=== PATIENT | female | born 1955 | race Caucasian/White ===

== ENCOUNTER 2019-03-29 08:13 | Emergency (ER) | payer BC ==
--- NOTE | 2019-03-29 09:39 | EDM.PDOC ---
ED HPI GENERAL MEDICAL PROBLEM - General Stated Complaint: SHINGLES Time Seen by Provider: 03/29/19 08:20 Source of Information: Reports: Patient History Limitations: Reports: No Limitations - History of Present Illness INITIAL COMMENTS - FREE TEXT/NARRATIVE: According to patient she claims that she went [place]. She has developed blotchy large rashes along the waist line and along the posterior hairline of the scalp. the rashes were itchy and she has applied some lidocaine cream and the itching has resolved. The rashes have not spread since yesterday. No fever or chills. No wheezing or shortness of breath. No other complaints. Onset Date: 03/28/19 Location: Reports: Generalized Severity: Mild Associated Symptoms: Reports: Rash. Denies: Confusion, Chest Pain, Cough, Diaphoresis, Fever/Chills, Headaches, Seizure, Shortness of Breath, Syncope, Weakness - Related Data Allergies Allergy/AdvReac Type Severity Reaction Status Date / Time No Known Allergies Allergy Verified 03/29/19 11:02 Home Meds: Home Meds . [Unable to Verify Home Med List] 03/29/19 [History] ED ROS GENERAL - Review of Systems Review Of Systems: See Below Constitutional: Denies: Fever, Malaise, Weakness HEENT: Denies: Ear Pain, Rhinitis, Throat Pain Respiratory: Denies: Shortness of Breath, Wheezing, Pleuritic Chest Pain, Cough , Sputum Cardiovascular: Denies: Chest Pain, Lightheadedness GI/Abdominal: Denies: Abdominal Pain, Constipation, Diarrhea, Vomiting : Denies: Flank Pain, Frequency Musculoskeletal: Denies: Joint Pain, Joint Swelling Skin: Reports: Rash. Denies: Bruising, Pruritis, Wound ED EXAM, GENERAL - Physical Exam Exam: See Below Exam Limited By: No Limitations General Appearance: Alert, WD/WN, No Apparent Distress Eye Exam: Bilateral Eye: EOMI, PERRL Ears: Normal External Exam, Normal Canal, Hearing Grossly Normal, Normal TMs Ear Exam: Bilateral Ear: Auricle Normal, Canal Normal, TM normal Nose: Normal Inspection, Normal Mucosa, No Blood Throat/Mouth: Normal Inspection Head: Atraumatic, Normocephalic Neck: Normal Inspection, Supple, Non-Tender, Full Range of Motion Respiratory/Chest: No Respiratory Distress, Lungs Clear, Normal Breath Sounds, No Accessory Muscle Use, Chest Non-Tender Cardiovascular: Normal Peripheral Pulses, Regular Rate, Rhythm, No Edema, No Gallop, No JVD, No Murmur, No Rub Extremities: Normal Inspection, Normal Range of Motion, Non-Tender, Normal Capillary Refill, No Pedal Edema Skin Exam: Warm, Other (there are 1-3 cm ovoid pinksih rash along the waist line of the abdoemn adn also similar confluence of rash along the posterior hair line of the head. The rashes are also scattered over the anterior abdominal wall, none belwo waist line.) Course - Vital Signs Text/Narrative:: The rash might be contact dermatitis from exposure to some phytochemical or insect in the [place]. IT is not spreading. It has been itching and patient has applied lidoderm cream which is helping. No systemic symptoms. I have advised Benadryl 25mg 3 times daily and zantac 150mg twice daily for 3 days. Avoid scratching the rash.The rash should resolve gradually. Return if symptoms worsen. Pt is concerned if this is shingles. I have reassured patient that this is not shingles. Last Recorded V/S: Last Vital Signs Temp 98.1 F 03/29/19 09:51 Pulse 106 H 03/29/19 09:51 Resp 20 03/29/19 09:51 BP 106/69 03/29/19 09:51 Pulse Ox 95 03/29/19 09:51 Departure - Departure Time of Disposition: 21:30 Disposition: Home, Self-Care 01 Condition: Fair Clinical Impression: Contact dermatitis - Discharge Information *PRESCRIPTION DRUG MONITORING PROGRAM REVIEWED*: Not Applicable *COPY OF PRESCRIPTION DRUG MONITORING REPORT IN PATIENT RAFA: Not Applicable Instructions: Rash, Contact Dermatitis Referrals: PCP,None [Primary Care Provider] - Forms: ED Department Discharge Additional Instructions: Take Benadryl 25mg orally 3 times a day for 2-3 days. Take Zantac 150mg orally twice day for 2-3 days. Avoid scratching. If they itch, rub area instead. - Problem List & Annotations (1) Contact dermatitis SNOMED Code(s): 68143695 Code(s): L25.9 - UNSPECIFIED CONTACT DERMATITIS, UNSPECIFIED CAUSE Status: Acute - Problem List Review Problem List Initiated/Reviewed/Updated: Yes - Assessment/Plan Assessment:: Contact dermatitis Plan: The rash might be contact dermatitis from exposure to some phytochemical or insect in the [place]. IT is not spreading. It has been itching and patient has applied lidoderm cream which is helping. No systemic symptoms. I have advised Benadryl 25mg 3 times daily and zantac 150mg twice daily for 3 days. Avoid scratching the rash.The rash should resolve gradually. Return if symptoms worsen. Pt is concerned if this is shingles. I have reassured patient that this is not shingles.
== END 2019-03-29 09:56 | disposition home or self-care (01) ==
LOC: LB.ED 08:13
DX: L25.9 Unspecified contact dermatitis, unspecified cause (principal)
CPT/HCPCS: 99282

== ENCOUNTER 2022-06-21 10:23 | Day surgery (SDC) | payer MEDICARE ==
[~2022-06-21 10:23] MED LIST: Metoclopramide 10 MG/2 ML SDV IV PRN; Sodium Chloride 0.9% 1,000 ML IV SCH
== END 2022-06-21 14:45 | disposition home or self-care (01) ==
LOC: LB.SDS 10:23
PROVIDERS: ATTEND Surgery
DX: Z12.11 Encounter for screening for malignant neoplasm of colon (principal); D12.0 Benign neoplasm of cecum; D12.4 Benign neoplasm of descending colon; D12.3 Benign neoplasm of transverse colon; Z79.899 Other long term (current) drug therapy
CPT/HCPCS: 45385; J2704; J2765; J7030

== ENCOUNTER 2023-08-22 08:30 | Day surgery (SDC) | payer MEDICARE ==
[~2023-08-22 08:30] MED LIST changes: -Sodium Chloride 0.9% 1,000 ML IV SCH
[2023-08-22] MEDS: Sodium Chloride 0.9% 1,000 ML IV SCH (09:05)
[2023-08-22] MEDS ORDERED: Propofol 1,000 MG/100 ML SDV ONE (09:45)
== END 2023-08-22 10:58 | disposition home or self-care (01) ==
LOC: LB.SDS 08:30
PROVIDERS: ATTEND Surgery
DX: Z12.11 Encounter for screening for malignant neoplasm of colon (principal); D12.3 Benign neoplasm of transverse colon; K57.30 Diverticulosis of large intestine without perforation or abscess without bleeding; E11.9 Type 2 diabetes mellitus without complications; E78.00 Pure hypercholesterolemia, unspecified
CPT/HCPCS: 45380; 82947; J2704; J7030